=== PATIENT | female | born 1955 | race African-American/Black ===

== ENCOUNTER 2018-07-22 12:13 | Emergency (ER) | payer OTHER, SELFPAY ==
[2018-07-22] MEDS ORDERED: Furosemide 40 MG/4 ML VIAL ONE (12:56)
[2018-07-22 13:03] LABS: #Basophils 0.1 thou/uL (0.0-0.2); #Eosinphils 0.2 thou/uL (0.0-0.7); #Lymphocytes 2.1 thou/uL (1.20-3.40); #Monocytes 0.8 thou/uL (0.11-0.59); %Basophils 0.7 % (0.0-1.0); %Eosinophils 1.8 % (0.0-10.0); %Lymphocytes 18.9 % (21.0-51.0); %Monocytes 7.1 % (0.0-10.0); %Neutrophils 71.5 % (42.0-75.0); Hemoglobin 10.3 g/dL (12.0-16.0); Mean Corpuscular HGB CONC 31.2 g/dL (32.0-36.0); Mean Corpuscular Hemoglobin 26.4 pg (27.0-31.0); Mean Corpuscular Volume 84.6 fL (78.0-98.0); Mean Platelet Volume 8.8 fL (7.4-10.4); Platelet Count 368 thou/uL (130-400); RBC Distribution Width 12.5 % (11.5-14.5); White Blood Cell (WBC) Count 11.2 thou/uL (4.8-10.8)
[2018-07-22 13:20] LABS: ALT (SGPT) 48 U/L (8-55); AST (SGOT) 94 U/L (5-34); Albumin 2.1 g/dL (3.4-4.8); Alkaline Phosphatase 583 U/L (40-150); Anion Gap 12 mmol/L (10-20); BUN (Urea Nitrogen) 14 mg/dL (9.8-20.1); Bilirubin, Total 0.1 mg/dL (0.2-1.2); Calc. Creatinine Clearance 0 mL/min (70-130); Calcium 8.1 mg/dL (7.8-10.44); Carbon Dioxide 29 mmol/L (23-31); Chloride 103 mmol/L (98-107); Estimated GFR-MDRD 87; Globulin 4.3 g/dL (2.4-3.5); Glucose 76 mg/dL (80-115); Protein, Total 6.4 g/dL (6.0-8.3); Sodium 142 mmol/L (136-145)
[2018-07-22 13:22] LABS: Potassium 2.3 mmol/L (3.5-5.1)
[2018-07-22] MEDS ORDERED: Potassium Chloride 20 MEQ TAB ONE (13:30)
--- NOTE | 2018-07-22 13:32 | RAD ---
2 views of chest: 07/22/2018 COMPARISON: 10/27/2014 HISTORY: Shortness of breath FINDINGS: Heart and mediastinal contours are stable. There is atherosclerotic calcification of the ao rtic arch. No pneumothorax or pleural fluid. No focal consolidation or alveolar edema. There is multilevel disc space narrowing and anterior osteophyte formation within the mid thoracic spine. IMPRESSION: No acute findings.
[2018-07-22 13:45] LABS: CKMB 4.9 ng/mL (0-6.6)
[2018-07-22] MEDS ORDERED: Potassium Chloride 10 MEQ/100 ML PREMIX BAG ONE (13:56)
[2018-07-22] MEDS ORDERED: Potassium Chloride 20 MEQ/100 ML PREMIX BAG ONE (15:11)
[2018-07-22 16:19] LABS: Anion Gap 15 mmol/L (10-20); BUN (Urea Nitrogen) 14 mg/dL (9.8-20.1); Calc. Creatinine Clearance 0 mL/min (70-130); Calcium 8.4 mg/dL (7.8-10.44); Carbon Dioxide 31 mmol/L (23-31); Chloride 99 mmol/L (98-107); Estimated GFR-MDRD Greater than 90; Glucose 67 mg/dL (80-115); Sodium 142 mmol/L (136-145)
[2018-07-22] MEDS ORDERED: Aspirin Chewable 81 MG TAB ONE (16:26)
[2018-07-22 16:39] LABS: CKMB 4.5 ng/mL (0-6.6)
[2018-07-22 16:46] LABS: Potassium 2.5 mmol/L (3.5-5.1)
== END 2018-07-22 18:00 | disposition short-term general hospital (02) ==
LOC: NAV ERS 12:13
DX: I11.0 Hypertensive heart disease with heart failure (principal); I50.9 Heart failure, unspecified; R79.89 Other specified abnormal findings of blood chemistry; E87.6 Hypokalemia; I10 Essential (primary) hypertension; E11.9 Type 2 diabetes mellitus without complications; E78.5 Hyperlipidemia, unspecified; Z79.899 Other long term (current) drug therapy; Z79.84 Long term (current) use of oral hypoglycemic drugs
CPT/HCPCS: 36415; 71046; 80053; 82553; 83880; 84484; 85025; 93005; 94760; 96374; 96375; J1940; J3480